=== PATIENT | female | born 2000 ===

== ENCOUNTER 2025-06-20 10:29 | Outpatient (CLI) | payer OTHER | END 2025-06-20 10:32 | disposition home or self-care (01) | LOC: PRENATAL 10:29 | PROVIDERS: ATTEND Obstetrics & Gynecology Maternal & Fetal Medicine | DX: O26.849 Uterine size-date discrepancy, unspecified trimester (principal); O36.8120 Decreased fetal movements, second trimester, not applicable or unspecified; O36.5990 Maternal care for other known or suspected poor fetal growth, unspecified trimester, not applicable or unspecified; Z3A.26 26 weeks gestation of pregnancy ==

== ENCOUNTER 2025-06-26 09:04 | Outpatient (CLI) | payer OTHER | END 2025-06-26 09:05 | disposition home or self-care (01) | LOC: PRENATAL 09:04 | PROVIDERS: ATTEND Obstetrics & Gynecology Maternal & Fetal Medicine | DX: O36.8130 Decreased fetal movements, third trimester, not applicable or unspecified (principal); O36.5990 Maternal care for other known or suspected poor fetal growth, unspecified trimester, not applicable or unspecified; Z3A.28 28 weeks gestation of pregnancy ==